=== PATIENT | female | born 1950 | race Caucasian/White ===

== ENCOUNTER 2018-06-05 08:53 | Emergency (ER) | payer MEDICARE ==
[~2018-06-05] VITALS: Ht 154.9 cm; Wt 81.8 kg
[2018-06-05] MEDS ORDERED: IBUP-1984 PO (10:02)
[2018-06-05 10:30] VITALS: BP 126/74
== END 2018-06-05 10:32 | disposition home or self-care (01) ==
LOC: ER 08:53
DX: M25.561 Pain in right knee (principal); M19.90 Unspecified osteoarthritis, unspecified site; X50.1XXA Overexertion from prolonged static or awkward postures, initial encounter; Y93.54 Activity, bowling; Y92.89 Other specified places as the place of occurrence of the external cause; Y99.9 Unspecified external cause status
CPT/HCPCS: 29505; 73564; 99284